=== PATIENT | female | born 1950 | race Caucasian/White ===

== ENCOUNTER 2022-01-28 10:34 | Emergency (ER) | payer MEDICARE, BC, SELFPAY ==
[2022-01-28 10:40] VITALS: BP 124/82; PULSE 86; RESP 16; TEMP 36.6; O2SAT 98; BMI 29.6
--- NOTE | 2022-01-28 11:06 | ED.GENADULT ---
HPI - General Adult General Time Seen by Provider: 11:10 Date Seen: 01/28/22 Chief complaint: High Blood Pressure Stated complaint: High blood pressure Time Seen by Provider: 01/28/22 11:04 Source: patient Mode of arrival: ambulatory Limitations: no limitations History of Present Illness HPI narrative: 71-year-old female who presents today with multiple concerns. Her primary concern is elevated blood pressure. She has been taking her blood pressure over the past several days and notes that has been high, which for her is systolics in the 140s and as high as 160. She also notes a couple of weeks feeling fuzzy mentally, occasionally feeling like she needs to take a big breath, as well as intermittent flushing. She denies dizziness but has had headaches in the back of her head which have occurred during sleep, relieved with Tylenol or ibuprofen. She had a bloody nose last week. She denies chest pain, shortness of breath, nausea, vomiting, diarrhea, abdominal pain. She has had a little bit of weight gain after having intentional weight loss prior. She admits to increased stress with recent national legal decisions and concerns. Onset (ago): week(s) Related Data Home Medications Medication Instructions Recorded Confirmed pravastatin 20 mg tablet mg 01/28/22 sertraline 50 mg tablet mg 01/28/22 topiramate 25 mg tablet mg 01/28/22 Allergies Allergy/AdvReac Type Severity Reaction Status Date / Time bees Allergy Severe Uncoded 01/28/22 10:58 Review of Systems Status of ROS: Reports: 10 or more systems reviewed and unremarkable except as noted in History and below [facility] Medical History (Updated 01/28/22 @ 12:22 by Armand Santiago MD) Arrhythmia Social History Smoking Status: Never smoker Do you use any of these nicotine containing products: None Second hand tobacco smoke exposure: No How often do you have a drink containing alcohol: 2-3 times a week How many standard drinks containing alcohol do you have on a typical day: 1 or 2 How often do you have six or more drinks on one occasion: Never AUDIT-C Alcohol total score: 3 Non-prescribed substance use: over the counter (eg: immodium) Non-prescribed substance use details: tylenol ibuprofen service: No Exam Const: Vital Signs, click to edit/add: Vital Signs - 24 hr 01/28/22 10:40 Temperature 97.8 F Pulse Rate [Right Brachial] 86 Respiratory Rate 16 Blood Pressure [Ri ght Upper Arm] 124/82 Pulse Oximetry 98 Documenting provider has reviewed patient's vital signs: yes Common normals: no apparent distress, oriented x3 and healthy appearing General appearance: cooperative HENMT: Common normals: normocephalic, head/scalp atraumatic, external ears normal and external nose normal Head and scalp: normocephalic and atraumatic Nose: external nose normal, nares normal and other (No blood or clot) External ear: external ears normal Eye: Common normals: PERRL, EOMs intact bilaterally and conjunctivae normal Conjunctiva: conjunctiva(e) normal Pupil: PERRL Neck & C-Spine: Common normals: full ROM, no lymphadenopathy and supple General: trachea midline Chest: Common normals: inspection of chest normal Resp: Common normals: normal respiratory effort, no retractions, no use of accessory muscles and clear to auscultation bilaterally Auscultation: clear to auscultation bilaterally Cardio: Common normals: regular rate, regular rhythm and no murmurs Rate: regular rate Rhythm: regular rhythm GI: Common normals: soft to palpation and non-tender Auscultation: normoactive bowel sounds Palpation: soft Extremity: Common normals: normal to inspection and full ROM Neuro: Gibbs Coma Scale: GCS not evaluated Common normals: oriented x3, CN's II-XII intact bilaterally, moves all extremities and no focal motor deficits Psych: Common normals: mental status grossly normal Course Course Hospital Course: 11:10 a.m. Patient seen and examined, prior records are reviewed. Patient presents with multiple concerns today, primarily high blood pressure. Her pressures are not significantly elevated in the emergency department and in talking to her, she has not recorded any concerning the high blood pressures at home either. She has multiple symptoms of flushing feeling little fuzzy in her head. No focal neurologic findings, patient is not complaining of any chest pain or shortness of breath. Labs are ordered. Reevaluation(s) Reevaluation #1: Patient recheck, we discussed results and follow-up. Questions are answered and patient is stable for discharge. Time: 12:22 Vital Signs Vital signs: Initial Vital Signs Temperature 97.8 F 01/28/22 10:40 Temperature Source Temporal Artery Scan 01/28/22 10:40 Pulse Rate 86 01/28/22 10:40 Pulse Rhythm 01/28/22 10:40 Pulse Strength 3+ Normal 01/28/22 10:40 Respiratory Rate 16 01/28/22 10:40 Blood Pressure 124/82 01/28/22 10:40 Blood Pressure Mean 96 01/28/22 10:40 Blood Pressure Position Sitting 01/28/22 10:40 Pulse Oximetry 98 01/28/22 10:40 Oxygen Delivery Method 01/28/22 10:40 Vital Signs Temperature 97.8 F 01/28/22 10:40 Pulse Rate 86 01/28/22 10:40 Respiratory Rate 16 01/28/22 10:40 Blood Pressure 124/82 01/28/22 10:40 Pulse Oximetry 98 01/28/22 10:40 Temperature 97.8 F 01/28/22 10:40 Pulse Rate 86 01/28/22 10:40 Respiratory Rate 16 01/28/22 10:40 Blood Pressure 124/82 01/28/22 10:40 Pulse Oximetry 98 01/28/22 10:40 Medical Decision Making Medical Records Medical records reviewed: Yes I reviewed the patient's medical records Lab Data Lab results reviewed: Yes I reviewed the patient's lab results Labs: Lab Results 01/28/22 01/28/22 Range/Units 11:46 11:46 WBC 5.55 (4.50-11.00) K/uL RBC 4.56 (4.00-5.20) m/uL Hgb 13.9 (12.0-16.0) gm/dL Hct 43.1 (33.0-51.0) % MCV 95 (80-100) fL MCH 31 (26-34) pg MCHC 32 (32-36) gm/dL RDW Coeff of Melissa 13.4 (11.5-15.5) % Plt Count 313 (140-440) K/uL Neut % (Auto) 70.4 (42.0-72.0) % Lymph % (Auto) 19.1 L (20-44) % [place] % (Auto) 7.4 (0.0-11.0) % Eos % (Auto) 1.6 (0.0-7.0) % Baso % (Auto) 1.1 (0.0-3.0) % Neut # (Auto) 3.91 (1.7-7.0) K/uL Lymph # (Auto) 1.10 (0.90-2.90) K/uL [place] # (Auto) 0.40 (0.00-0.90) K/UL Eos # (Auto) 0.09 (0.00-0.50) K/uL Baso # (Auto) 0.06 (0.00-0.30) K/uL Abs Immat Gran (auto) 0.02 (0.00-0.30) K/uL Sodium 139 (135-149) mmol/L Potassium 4.4 (3.6-5.1) mmol/L Chloride 106 (96-114) mmol/L Carbon Dioxide 24 (20-32) mmol/L BUN 14 (7-30) mg/dL Creatinine 0.8 (0.5-1.5) mg/dL Estimated Creat Clear 52.81 Glucose 118 H (60-115) mg/dL Calcium 9.7 (8.4-10.6) mg/dL Discharge Plan Discharge Clinical Impression: Facial flushing, Blood pressure check Patient Disposition: Home, Self-Care Instructions: How to Take a Blood Pressure (ED) Additional Instructions: Check your blood pressure once a day at the same time each day. Keep track of your flushing to see if it seems to occur during certain time of day or with certain activities. Activity Level: No Restrictions Discharge Diet: Regular Prescriptions: No Action topiramate 25 mg tablet 0RF pravastatin 20 mg tablet 0RF sertraline 50 mg tablet 0RF Follow Up/Referrals: Provider,Not a Local [Primary Care Provider] - (Follow-up with your regular doctor at the end of this week or beginning of next week for further evaluation) Stand Alone Forms: [employer] Info Instructions
[2022-01-28 11:50] LABS: Slide Review Reflex No
[2022-01-28 12:08] LABS: Basophils Absolute Auto 0.06 K/uL (0.00-0.30); Basophils Percent Auto 1.1 % (0.0-3.0); Eosinophils Absolute Auto 0.09 K/uL (0.00-0.50); Eosinophils Percent Auto 1.6 % (0.0-7.0); Hematocrit 43.1 % (33.0-51.0); Hemoglobin* 13.9 gm/dL (12.0-16.0); Immature Granulocytes Abs Auto 0.02 K/uL (0.00-0.30); Lymphocytes Percent Auto 19.1 % (20-44); Mean Corpuscular HGB Conc 32 gm/dL (32-36); Mean Corpuscular Hemoglobin 31 pg (26-34); Mean Corpuscular Volume 95 fL (80-100); Monocytes Percent Auto 7.4 % (0.0-11.0); Neutrophils Absolute Auto 3.91 K/uL (1.7-7.0); Neutrophils Percent Auto 70.4 % (42.0-72.0); Platelet Count* 313 K/uL (140-440); RDW Coefficient of Variation % 13.4 % (11.5-15.5); Red Blood Count 4.56 m/uL (4.00-5.20); White Blood Count* 5.55 K/uL (4.50-11.00)
[2022-01-28 12:10] LABS: Chloride* 106 mmol/L (96-114); Potassium* 4.4 mmol/L (3.6-5.1); Sodium* 139 mmol/L (135-149)
[2022-01-28 12:13] LABS: Blood Urea Nitrogen* 14 mg/dL (7-30); Calcium* 9.7 mg/dL (8.4-10.6); Carbon Dioxide* 24 mmol/L (20-32); Creatinine* 0.8 mg/dL (0.5-1.5); Est. Creatinine Clearance* 52.81; Estimated Glomerular Filt Rate 79.22; Glucose* 118 mg/dL (60-115)
== END 2022-01-28 13:04 | disposition home or self-care (01) ==
PROVIDERS: Emergency Provider Family Medicine
DX: R23.2 Flushing (principal); R03.0 Elevated blood-pressure reading, without diagnosis of hypertension
CPT/HCPCS: 36415; 80048; 84443; 85025; 99283; 99284

== ENCOUNTER 2023-10-01 11:30 | Outpatient (RCR) | payer MEDICARE, BC, SELFPAY | END 2023-12-24 14:27 | disposition home or self-care (01) | PROVIDERS: PCP Family Medicine; Visit Provider Family Medicine | DX: H81.11 Benign paroxysmal vertigo, right ear (principal); Z51.89 Encounter for other specified aftercare | CPT/HCPCS: 97110; 97112; 97140; 97162 ==

== ENCOUNTER 2024-02-28 19:38 | Emergency (ER) | payer MEDICARE, BC, SELFPAY ==
[2024-02-28 19:42] VITALS: BP 138/86; PULSE 104; RESP 18; TEMP 37.6; O2SAT 98; BMI 28.9
--- NOTE | 2024-02-28 21:28 | CRLHL7_ITS ---
For Patients: As a result of the Century Cures Act, medical imaging exams and procedure reports are released immediately into your electronic medical record. You may view this report before your referring provider. If you have questions, please contact your health care provider. INDICATION: Abdominal pain. TECHNIQUE: CT abdomen and pelvis acquired with 93 cc Isovue 370 IV contrast. COMPARISON: None. FINDINGS: Lower chest: Unremarkable. Liver: Unremarkable. Normal in size and attenuation. No suspicious masses. Gallbladder and bile ducts: Unremarkable. No stones or inflammation. No biliary ductal dilatation. Spleen: Unremarkable. Normal in size. No masses. Adrenal glands: Unremarkable. No nodules. Pancreas: Unremarkable. No mass or inflammation. Kidneys: Unremarkable. No suspicious masses, stones, or hydronephrosis. GI tract: Colonic diverticulosis without evidence of diverticulitis. Moderate colonic stool load. No evidence of obstruction. Normal appendix. Lymph nodes: Postsurgical changes of lymph node dissection. No pathologically enlarged lymph nodes. Vasculature: Unremarkable. Omentum/Peritoneum/Abdominal Wall: Tiny fat containing umbilical hernia. No free air or significant free fluid. Pelvis: Status post hysterectomy. Bones: Decreased bone mineralization. No suspicious osteolytic or osteoblastic lesions. Mild degenerative changes. IMPRESSION: 1. No acute abdominal or pelvic abnormality. 2. Moderate colonic stool load. 3. Colonic diverticulosis without evidence of diverticulitis. Please note that all CT scans at this facility use dose modulation, iterative reconstruction, and/or weight-based dosing when appropriate to reduce radiation dose to as low as reasonably achievable. Dictated by Frantz Dallas MD @ 02/29/2024 12:27:21 AM (Electronically Signed)
[2024-02-28 21:43] LABS: Creatinine, Point-of-Care* 0.9 mg/dl (0.6-1.3)
[2024-02-28 21:50] LABS: Basophils Absolute Auto 0.07 K/uL (0.00-0.30); Basophils Percent Auto 0.9 % (0.0-3.0); Eosinophils Absolute Auto 0.09 K/uL (0.00-0.50); Eosinophils Percent Auto 1.2 % (0.0-7.0); Hematocrit 40.3 % (33.0-51.0); Hemoglobin* 12.8 gm/dL (12.0-16.0); Immature Granulocytes Abs Auto 0.05 K/uL (0.00-0.30); Immature Granulocytes Pct Auto 0.7 %; Lymphocytes Absolute Auto 1.68 K/uL (0.90-2.90); Lymphocytes Percent Auto 22.3 % (20-44); Mean Corpuscular HGB Conc 32 gm/dL (32-36); Mean Corpuscular Hemoglobin 30 pg (26-34); Mean Corpuscular Volume 96 fL (80-100); Monocytes Percent Auto 7.4 % (0.0-11.0); Neutrophils Absolute Auto 5.07 K/uL (1.7-7.0); Neutrophils Percent Auto 67.5 % (42.0-72.0); Platelet Count* 306 K/uL (140-440); Red Blood Count 4.22 m/uL (4.00-5.20); White Blood Count* 7.52 K/uL (4.50-11.00)
[2024-02-28] MEDS: 0.9 % SODIUM CHLORIDE 1000 ml 1,000 ML IV (21:51)
[2024-02-28 21:54] LABS: Slide Review Reflex No
[2024-02-28 22:01] LABS: Chloride* 107 mmol/L (96-114); Sodium* 139 mmol/L (135-149)
[2024-02-28 22:03] LABS: Creatinine* 0.7 mg/dL (0.5-1.5); Est. Creatinine Clearance* 50.54; Estimated Glomerular Filt Rate 91 ml/min
[2024-02-28 22:04] LABS: Anion Gap 6 mEq/L (7-15); Blood Urea Nitrogen* 16 mg/dL (7-30); Calcium* 9.4 mg/dL (8.4-10.6); Carbon Dioxide* 26 mmol/L (20-32); Glucose* 102 mg/dL (60-115)
--- NOTE | 2024-02-28 22:20 | ED_ITS ---
HPI - Abdominal Pain General Date Seen: 02/28/24 Chief Complaint: Constipation Stated Complaint: constipated Time Seen by Provider: 02/28/24 20:22 Source: patient and family Mode of arrival: ambulatory Limitations: no limitations History of Present Illness HPI narrative: Patient is a very nice 74-year-old female presents here with abdominal discomfort bloating, and progressively smaller stools over the course of the last 3-4 weeks. She has to push to get these out, is worried about being constipated has tried MiraLax last couple days with really no relief. She has also tried an enema at home, and been taking some Dulcolax. She has no previous history of constipation but she did start a new G LP 1 medication for weight loss. Five weeks ago. She has had a normal colonoscopy 15 years ago and has had normal bowel screening she says. 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, no history of previous small-bowel obstructions Pertinent past history: none Location: diffuse Severity: moderate Quality: cramping Radiation: none Migration to: no migration Exacerbating factors: nothing Related Data Patient : No Home Medications ?Medication ?Instructions ?Recorded ?Confirmed pravastatin 20 mg tablet mg 01/28/22 01/11/24 sertraline 50 mg tablet mg 01/28/22 01/11/24 topiramate 25 mg tablet mg 01/28/22 01/11/24 metoprolol succinate 25 mg 12.5 mg PO DAILY 06/11/23 01/11/24 tablet,extended release 24 hr semaglutide 0.25 mg or 0.5 mg (2 0.25 mg subcut QWEEK 02/28/24 02/28/24 mg/3 mL) subcutaneous pen injector Allergies Allergy/AdvReac Type Severity Reaction Status Date / Time bees Allergy Severe Uncoded 01/11/24 10:46 Review of Systems Status of ROS Reports: 10 or more systems reviewed and unremarkable except as noted in History and below [facility] Medical History Arrhythmia ?I49.9 - Cardiac arrhythmia, unspecified (ICD-10) Social History Smoking Status: Never smoker Do you use any of these nicotine containing products: None Second hand tobacco smoke exposure: No How often do you have a drink containing alcohol: 2-3 times a week How many standard drinks containing alcohol do you have on a typical day: 1 or 2 How often do you have six or more drinks on one occasion: Never AUDIT-C Alcohol total score: 3 Non-prescribed substance use: over the counter (eg: immodium) Non-prescribed substance use details: tylenol ibuprofen service: No Exam Narrative: Exam Narrative: On examination she is in no apparent distress she is pleasant alert pupils equal round reactive to light there is no scleral icterus redness TMs are normal oropharynx normal there is no adenopathy anterior posterior chains her chest is good air entry bilateral with no wheezing crackles noted heart sounds no clicks murmurs or gallops her abdomen is soft, some fullness is detected more on the left than the right side, bowel sounds are normal I do not detect a mass, no tenderness. With the nurse present rectal exam is done, which shows no evidence of a stool within the rectal vault there is no blood on my examining finger. No masses palpable Const: Vital Signs, click to edit/add: Vital Signs - 24 hr 02/28/24 19:42 02/29/24 00:23 Temperature 99.7 F H 97.1 F L Pulse Rate [Left P ulse Oximeter] 104 H 78 Respiratory Rate 18 16 Blood Pressure [Ri ght Upper Arm] 138/86 138/71 Pulse Oximetry 98 98 Oxygen Delivery Me thod Room Air Room Air Documenting provider has reviewed patient's vital signs: yes Course Course ED Course: Discussed with the patient and her , there is some [id number] constipation seen but no other acute findings via the radiology read. I do believe a least part of this is from the use of the G LP 1 medications. Follow- up with primary care, return as needed. Vital Signs Vital signs: Initial Vital Signs Temperature 99.7 F H 02/28/24 19:42 Temperature Source Temporal Artery Scan 02/28/24 19:42 Pulse Rate 104 H 02/28/24 19:42 Pulse Rhythm Regular 02/28/24 19:42 Respiratory Rate 18 02/28/24 19:42 Blood Pressure 138/86 02/28/24 19:42 Blood Pressure Mean 103 02/28/24 19:42 Blood Pressure Position Sitting 02/28/24 19:42 Pulse Oximetry 98 02/28/24 19:42 Oxygen Delivery Method Room Air 02/28/24 19:42 Vital Signs Temperature 99.7 F H 02/28/24 19:42 Pulse Rate 104 H 02/28/24 19:42 Respiratory Rate 18 02/28/24 19:42 Blood Pressure 138/86 02/28/24 19:42 Pulse Oximetry 98 02/28/24 19:42 Oxygen Delivery Method Room Air 02/28/24 19:42 Temperature 97.1 F L 02/29/24 00:23 Pulse Rate 78 02/29/24 00:23 Respiratory Rate 16 02/29/24 00:23 Blood Pressure 138/71 02/29/24 00:23 Pulse Oximetry 98 02/29/24 00:23 Oxygen Delivery Method Room Air 02/29/24 00:23 Medications Administered Medications: Discontinued Medications Generic Name Dose Route Start Last Admin Trade Name Freq PRN Reason Stop Dose Admin Sodium Chloride 1,000 mls @ 1,000 mls/hr 02/28/24 21:30 02/29/24 00:08 0.9 % Sodium Chloride 1000 Ml IV 02/28/24 22:29 Infused .Q1H ZBIGNIEW Infusion MDM - Abdominal Pain MDM Narrative Medical decision making narrative: During the evaluation of this patient I considered multiple differential diagnosis including life-threatening differentials which are appendicitis, aortic aneurysm, mesenteric ischemia, bowel perforation, ectopic , volvulus and bowel obstruction, other differential diagnosis include but are not limited to inflammatory bowel disease, cholecystitis, pancreatitis, hepatitis, gastritis, GERD, diverticulitis, peptic ulcer disease, pyelonephritis/UTI, renal colic/stone, pelvic inflammatory disease, cervicitis, endometritis, intrauterine , dysfunctional uterine bleeding, ovarian cyst/torsion, spontaneous as well as other etiologies, I discussed with her doing some screening laboratory tests and a CT scan. She was agreeable to this. Medical Records Attestation: I reviewed the patient's medical records. Lab Data Labs: Lab Results 02/28/24 02/28/24 Range/Units 21:29 21:35 WBC 7.52 (4.50-11.00) K/uL RBC 4.22 (4.00-5.20) m/uL Hgb 12.8 (12.0-16.0) gm/dL Hct 40.3 (33.0-51.0) % MCV 96 (80-100) fL MCH 30 (26-34) pg MCHC 32 (32-36) gm/dL RDW Coeff of Melissa 14.0 (11.5-15.5) % Plt Count 306 (140-440) K/uL Neut % (Auto) 67.5 (42.0-72.0) % Lymph % (Auto) 22.3 (20-44) % [place] % (Auto) 7.4 (0.0-11.0) % Eos % (Auto) 1.2 (0.0-7.0) % Baso % (Auto) 0.9 (0.0-3.0) % Neut # (Auto) 5.07 (1.7-7.0) K/uL Lymph # (Auto) 1.68 (0.90-2.90) K/uL [place] # (Auto) 0.60 (0.00-0.90) K/UL Eos # (Auto) 0.09 (0.00-0.50) K/uL Baso # (Auto) 0.07 (0.00-0.30) K/uL Abs Immat Gran (auto) 0.05 (0.00-0.30) K/uL Imm/Tot Granulo (auto) 0.7 % Sodium 139 (135-149) mmol/L Potassium 4.0 (3.6-5.1) mmol/L Chloride 107 (96-114) mmol/L Carbon Dioxide 26 (20-32) mmol/L Anion Gap 6 L (7-15) mEq/L BUN 16 (7-30) mg/dL Creatinine 0.7 (0.5-1.5) mg/dL Estimated Creat Clear 50.54 Estimated GFR 91 ml/min Glucose 102 (60-115) mg/dL Calcium 9.4 (8.4-10.6) mg/dL POC Creatinine 0.9 (0.6-1.3) mg/dl Discharge Plan Discharge Clinical Impression: Constipation by delayed colonic transit Patient Disposition: Home w/ Parent or Adult Condition: Stable Instructions: Constipation (ED), High Fiber Diet (ED) Additional Instructions: Patient to be discharged home takes MiraLax 1 capsule day with 20 oz of water, is also use increased fiber such as FiberCon, lots of vegetables. Discussed with her primary care physician, the continued use of your G LP 1 his medication. I do believe this is causing some your delayed transit time. Activity Level: Activity as Tolerated Prescriptions: No Action metoprolol succinate 25 mg tablet extended release 24 hr 12.5 mg PO DAILY semaglutide 0.25 mg or 0.5 mg (2 mg/3 mL) pen injector 0.25 mg subcut QWEEK Rx Instructions: for 4 weeks topiramate 25 mg tablet pravastatin 20 mg tablet sertraline 50 mg tablet Follow Up/Referrals: Mitra Lucas MD [Primary Care Provider] - Stand Alone Forms: [employer] Info Instructions
[2024-02-29 00:23] VITALS: BP 138/71; PULSE 78; RESP 16; TEMP 36.2; O2SAT 98
== END 2024-02-29 00:43 | disposition home or self-care (01) ==
PROVIDERS: Emergency Provider Family Medicine; PCP Internal Medicine
DX: K59.01 Slow transit constipation (principal)
CPT/HCPCS: 36415; 74177; 80048; 82565; 85025; 96360; 96361; 99284; 99285; J7030; Q9967

== ENCOUNTER 2024-05-06 11:30 | Outpatient (RCR) | payer MEDICARE, BC, SELFPAY | END 2024-05-23 09:26 | disposition home or self-care (01) | PROVIDERS: PCP Internal Medicine; Visit Provider Family Medicine | DX: H81.11 Benign paroxysmal vertigo, right ear (principal); R26.89 Other abnormalities of gait and mobility; R51.9 Headache, unspecified; Z51.89 Encounter for other specified aftercare | CPT/HCPCS: 97112; 97140; 97162 ==

== ENCOUNTER 2025-02-23 10:30 | Outpatient (RCR) | payer MEDICARE, BC, SELFPAY ==
--- NOTE | 2025-01-12 11:03 | REH.OT ---
Pt did not show for scheduled OP OT evaluation today.
== END 2025-05-04 17:36 | disposition home or self-care (01) ==
PROVIDERS: PCP Internal Medicine; Visit Provider Family Medicine
DX: M18.0 Bilateral primary osteoarthritis of first carpometacarpal joints (principal); Z51.89 Encounter for other specified aftercare
CPT/HCPCS: 97535; L3913

== ENCOUNTER 2025-04-20 16:08 | Outpatient (CLI) | payer MEDICARE, BC, SELFPAY | END 2025-04-20 16:09 | disposition home or self-care (01) | LOC: NFLDREF 04-26 13:41 | PROVIDERS: PCP Internal Medicine; Referring Provider Internal Medicine; Visit Provider Physician Assistant | DX: N39.0 Urinary tract infection, site not specified (principal); R30.0 Dysuria | CPT/HCPCS: 87086 ==